=== PATIENT | female | born 1995 | race American Indian/Alaskan Native ===

== ENCOUNTER 2019-08-15 11:51 | Emergency (ER) | payer SELFPAY ==
[2019-08-15 12:09] VITALS: BP 101/69
--- NOTE | 2019-08-15 12:12 | Event Note ---
ED Screening Note Date of service: 08/15/19 Time: 12:07 ED Screening Note: Pt complains of sudden onset of substernal chest pain and shortness of breath x yesterday. States coughing up blood. Drove from [place] 1 month ago. denies pain or swellin gin legs. +smoker. Denies hx of asthma RRR normal breath sounds bilaterally This initial assessment/diagnostic orders/clinical plan/treatment(s) is/are subject to change based on patients health status, clinical progression and re-assessment by fellow clinical providers in the ED. Further treatment and workup at subsequent clinical providers discretion. Patient/guardian urged not to elope from the ED as their condition may be serious if not clinically assessed and managed. Initial orders include:
[2019-08-15] MEDS ORDERED: PROVENTIL IH ONE (12:57)
[2019-08-15] MEDS ORDERED: ATROVENT IH ONE (12:57)
--- NOTE | 2019-08-15 13:03 | Emergency Department Report ---
HPI - General Chief Complaint: Dyspnea/Respdistress Time Seen by Provider: 08/15/19 12:38 - HPI HPI: Room 36 The patient is 24-year-old female presented with a chief complaint of shortness of breath and cough. The patient states yesterday she developed cough and shortness of breath. The patient states this morning at 04:00 she waken with worsening shortness of breath. Patient states she vomited once and her cough producing blood. Patient states she measured a fever at home of 101F. Patient missed a rhinorrhea but denies sick contacts Location: [See above] Duration: [See above] Quality: [See above] Severity: [See above] Timing: [See above] Context: [See above] Modifying factors: [See above] Associated signs and symptoms: [see above] ED Past Medical Hx - Past Medical History Previous Medical History?: No - Surgical History Additional Surgical History: Tonsillectomy, pneumatic equalization tubes - Family History Family history: no significant - Social History Smoking Status: Current Every Day Smoker (1/2 pack per day) Substance Use Type: Marijuana - Medications Home Medications: Home Medications Medication Instructions Recorded Confirmed Last Taken Type ALBUTEROL Inhaler (OR & NICU) 2 puff IH QID PRN #1 inhalation 08/15/19 Unknown Rx [Proair] Azithromycin [Zithromax Z-VI] 0 mg PO DAILY #6 tab 08/15/19 Unknown Rx Benzonatate [Tessalon Perles] 100 mg PO Q8HR #30 capsule 08/15/19 Unknown Rx Promethazine [Phenergan] 25 mg PO Q6HR PRN #10 tab 08/15/19 Unknown Rx ED Review of Systems ROS: Stated complaint: SOB/COUGH/SORE THROAT Other details as noted in HPI Constitutional: fever Eyes: denies: eye pain ENT: other (rhinorrhea) Respiratory: cough, shortness of breath, wheezing Cardiovascular: denies: chest pain Endocrine: no symptoms reported Gastrointestinal: nausea, vomiting. denies: abdominal pain Genitourinary: denies: dysuria Musculoskeletal: denies: back pain Neurological: denies: headache Physical Exam - Physical Exam Vital Signs: Vital Signs 08/15/19 12:07 Temperature 98.5 F Pulse Rate 82 Respiratory 18 Rate Blood Pressure 101/69 [Right] O2 Sat by Pulse 100 Oximetry Physical Exam: GENERAL: The patient is well-developed well-nourished female lying on stretcher appearing to be in mild discomfort. [] HEENT: Normocephalic. Atraumatic. Extraocular motions are intact. Patient has moist mucous membranes. NECK: Supple. No stridor CHEST/LUNGS: Diffuse wheezing. Occasional cough HEART/CARDIOVASCULAR: Regular. There is no tachycardia. There is no gallop rub or murmur. ABDOMEN: Abdomen is soft, nontender. Patient has normal bowel sounds. There is no abdominal distention. SKIN: There is no rash. There is no edema. There is no diaphoresis. NEURO: The patient is awake, alert, and oriented. The patient is cooperative. The patient has normal speech MUSCULOSKELETAL: There is no evidence of acute injury. ED Course Vital Signs 08/15/19 12:07 Temperature 98.5 F Pulse Rate 82 Respiratory 18 Rate Blood Pressure 101/69 [Right] O2 Sat by Pulse 100 Oximetry ED Medical Decision Making - Lab Data Result diagrams: 08/15/19 16:16 08/15/19 12:46 Laboratory Tests 08/15/19 08/15/19 08/15/19 12:46 12:46 12:46 WBC RBC Hgb Hct MCV MCH MCHC RDW Plt Count Lymph % (Auto) Graham % (Auto) Eos % (Auto) Baso % (Auto) Lymph # Graham # Eos # Baso # Seg Neutrophils % Seg Neutrophils # D-Dimer < 135.00 Sodium 142 Potassium 4.0 Chloride 106.2 Carbon Dioxide 22 Anion Gap 18 BUN 9 Creatinine 0.5 L Estimated GFR > 60 BUN/Creatinine Ratio 18 Glucose 90 Calcium 8.9 Total Creatine Kinase 80 CK-MB (CK-2) < 1.0 CK-MB (CK-2) Rel Index 1.2 Troponin T < 0.010 NT-Pro-B Natriuret Pep HCG, Qual Influenza A (Rapid) Influenza B (Rapid) 08/15/19 08/15/19 08/15/19 12:46 12:46 16:16 WBC 9.8 RBC 4.58 Hgb 12.2 Hct 37.9 MCV 83 MCH 27 L MCHC 32 RDW 13.9 Plt Count 303 Lymph % (Auto) [employer] Graham % (Auto) [employer] Consultant Eos % (Auto) [employer] Consultant Baso % (Auto) [employer] Consultant Lymph # [employer] Consultant Graham # [employer] Consultant Eos # [employer] Consultant Baso # [employer] Consultant Seg Neutrophils % [employer] Consultant Seg Neutrophils # [employer] Consultant D-Dimer Sodium Potassium Chloride Carbon Dioxide Anion Gap BUN Creatinine Estimated GFR BUN/Creatinine Ratio Glucose Calcium Total Creatine Kinase CK-MB (CK-2) CK-MB (CK-2) Rel Index Troponin T NT-Pro-B Natriuret Pep 54.71 HCG, Qual Negative Influenza A (Rapid) Influenza B (Rapid) 08/15/19 Unknown WBC RBC Hgb Hct MCV MCH MCHC RDW Plt Count Lymph % (Auto) Graham % (Auto) Eos % (Auto) Baso % (Auto) Lymph # Graham # Eos # Baso # Seg Neutrophils % Seg Neutrophils # D-Dimer Sodium Potassium Chloride Carbon Dioxide Anion Gap BUN Creatinine Estimated GFR BUN/Creatinine Ratio Glucose Calcium Total Creatine Kinase CK-MB (CK-2) CK-MB (CK-2) Rel Index Troponin T NT-Pro-B Natriuret Pep HCG, Qual Influenza A (Rapid) Negative Influenza B (Rapid) Negative - EKG Data -: EKG Interpreted by Me EKG shows normal: sinus rhythm Rate: normal - EKG Data When compared to previous EKG there are: previous EKG unavailable Interpretation: nonspecific ST-T wave florian (T-wave inversion in lead 3), other (early repolarization. No ischemic changes seen) - Radiology Data Radiology results: report reviewed (chest x-ray), image reviewed (chest x-ray) interpreted by me: Chest x-ray-no focal infiltrates, no pneumothorax [facility] [address] [place] [address] XRay Report Signed Patient: [facility] MR#: [id number] : 1995 Acct:[id number] Age/Sex: 24 / F ADM Date: 08/15/19 Loc: ED Attending Dr: Ordering Physician: JUSTIN CAIN MD Date of Service: 08/15/19 Procedure(s): XR chest routine 2V Accession Number(s): [id number] cc: JUSTIN CAIN MD Fluoro Time In Minutes: CHEST 2 VIEWS INDICATION: cough, shortness of breath, wheezing. COMPARISON: None. FINDINGS: Support devices: None. Heart: Within normal limits. Pulmonary vasculature: Normal. Lungs/pleura: No acute air space or interstitial disease. No pneumothorax. Additional findings: None. IMPRESSION: 1. No acute findings. Signer Name: Aurelia Newby MD Signed: 08/15/2019 3:12 PM Workstation Name: [id number] Transcribed By: REF Dictated By: AURELIA NEWBY MD Electronically Authenticated By: AURELIA NEWBY MD Signed Date/Time: 08/15/191511 DD/ 11 TD/TT: - Differential Diagnosis bronchitis, pneumonia, Critical care attestation.: If time is entered above; I have spent that time in minutes in the direct care of this critically ill patient, excluding procedure time. ED Disposition Clinical Impression: Acute bronchitis Disposition: DC- TO HOME OR SELFCARE Is pt being admited?: No Does the pt Need Aspirin: No Condition: Stable Instructions: Acute Bronchitis (ED) Additional Instructions: Return to the emergency department should you develop worsening symptoms, inability to tolerate food or liquids, high fever or any other concerns Prescriptions: Promethazine [Phenergan] 25 mg PO Q6HR PRN #10 tab PRN Reason: Nausea ALBUTEROL Inhaler (OR & NICU) [Proair] 2 puff IH QID PRN #1 inhalation PRN Reason: Shortness Of Breath Benzonatate [Tessalon Perles] 100 mg PO Q8HR #30 capsule Azithromycin [Zithromax Z-VI] 0 mg PO DAILY #6 tab Referrals: [facility] [Outside] - 3-5 Days Time of Disposition: 16:46
[2019-08-15 13:15] LABS: Creatine Kinase MB < 1.0 ng/mL (0.0-4.0)
[2019-08-15 13:18] LABS: BUN/Creatinine Ratio 18; Blood Urea Nitrogen 9 mg/dL (7-17); Calcium 8.9 mg/dL (8.4-10.2); Hemolysis Index 30
--- NOTE | 2019-08-15 15:17 | XRay Report ---
CHEST 2 VIEWS INDICATION: cough, shortness of breath, wheezing. COMPARISON: None. FINDINGS: Support devices: None. Heart: Within normal limits. Pulmonary vasculature: Normal. Lungs/pleura: No acute air space or interstitial disease. No pneumothorax. Additional findings: None. IMPRESSION: 1. No acute findings. Signer Name: Malcolm Vasquez MD Signed: 08/15/2019 3:12 PM Workstation Name: [id number]
[2019-08-15 16:34] LABS: Hematocrit 37.9 % (30.3-42.9); Hemoglobin 12.2 gm/dl (10.1-14.3); Mean Corpuscular HGB Conc 32 % (30-34); Mean Corpuscular Volume 83 fl (79-97); Platelet Count 303 K/mm3 (140-440); Red Blood Count 4.58 M/mm3 (3.65-5.03); Red Cell Distribution Width 13.9 % (13.2-15.2)
[2019-08-15 17:00] LABS: Lymphocytes % (Auto) 13.5 % (13.4-35.0); Monocytes % (Auto) 3.2 % (0.0-7.3)
[2019-08-15 17:01] LABS: Basophils % (Auto) 0.4 % (0.0-1.8); Eosinophils % (Auto) 0.3 % (0.0-4.3); Lymphocytes # (Auto) 1.3 K/mm3 (1.2-5.4); Monocytes # (Auto) 0.3 K/mm3 (0.0-0.8)
== END 2019-08-15 17:11 | disposition home or self-care (01) ==
LOC: ED 11:51
DX: J20.9 Acute bronchitis, unspecified (principal); F17.200 Nicotine dependence, unspecified, uncomplicated; F12.10 Cannabis abuse, uncomplicated
CPT/HCPCS: 36415; 71046; 80048; 82550; 82553; 83880; 84484; 84703; 85025; 85379; 87400; 93005; 93010; 94644